=== PATIENT | male | born 1965 | race Native Hawaiian/Other Pacific Islander ===

== ENCOUNTER 2016-09-28 23:20 | Emergency (ER) | payer OTHER ==
[~2016-09-28] VITALS: Ht 190.5 cm; Wt 127.9 kg
[~2016-09-28 23:20] MED LIST: AMLO2.5T PO; ASPIRIN325 M1 OR; CYCL10TA35 PO; HYDRALAZINE10 MG PO; INSU100I2 SC; LISI20TA11 PO; LOVASTATIN20 MG PO; LYRICA75 MG PO; METF500T PO; SIMV10TA PO; TRAZ100T OR; TRAZ100T PO; WARF5TAB6 PO
[2016-09-29 00:15] LABS: PLATELET COUNT 221 K/uL (142-355)
[2016-09-29 00:23] LABS: POTASSIUM 3.9 mmol/L (3.6-5.2)
[2016-09-29 02:01] VITALS: BP 193/97; TEMP 98.5
== END 2016-09-29 02:06 | disposition home or self-care (01) ==
LOC: ED 23:20
PROVIDERS: Family Medicine
DX: R07.89 Other chest pain (principal); R60.9 Edema, unspecified; I16.0 Hypertensive urgency; J40 Bronchitis, not specified as acute or chronic; J18.9 Pneumonia, unspecified organism; N28.9 Disorder of kidney and ureter, unspecified
CPT/HCPCS: 36415; 80053; 81000; 82550; 83880; 84484; 85027; 93005; 99283

== ENCOUNTER 2016-11-15 11:32 | Emergency (ER) | payer OTHER ==
[~2016-11-15] VITALS: Ht 185.4 cm; Wt 128.4 kg
[2016-11-15 11:25] VITALS: BP 181/103; TEMP 98.3
[2016-11-15 12:22] LABS: PLATELET COUNT 237 K/uL (142-355)
[2016-11-15 12:24] LABS: POTASSIUM 4.3 mmol/L (3.6-5.2)
[2016-11-15 12:39] LABS: PARTIAL THROMBOPLASTIN TIME 19.6 SECONDS (24.5-33.6)
== END 2016-11-15 13:54 | disposition home or self-care (01) ==
LOC: ED 11:32
DX: E11.65 Type 2 diabetes mellitus with hyperglycemia (principal); I10 Essential (primary) hypertension; F28 Other psychotic disorder not due to a substance or known physiological condition
CPT/HCPCS: 80053; 83036; 85027; 85610; 85730; 93005; 99283

== ENCOUNTER 2017-06-03 12:29 | Outpatient (CLI) | payer OTHER | END 2017-06-03 12:30 | disposition short-term general hospital (02) | LOC: AMB 12:29 | DX: R42 Dizziness and giddiness (principal); R53.1 Weakness; R55 Syncope and collapse | CPT/HCPCS: A0425; A0427 ==

== ENCOUNTER 2017-06-03 12:30 | Observation (INO) | payer OTHER ==
[~2017-06-03] VITALS: Ht 190.5 cm; Wt 120.5 kg
[2017-06-03 12:32] VITALS: BP 132/83; TEMP 97.8
[2017-06-03 13:50] LABS: POTASSIUM 3.7 mmol/L (3.6-5.2); SODIUM 138 mmol/L (136-145)
[2017-06-03 13:55] LABS: PLATELET COUNT 208 K/uL (142-355)
[2017-06-03 15:30] VITALS: BP 140/81
[2017-06-03 17:00] VITALS: BP 116/84
[2017-06-03 18:17] VITALS: BP 123/70; TEMP 97.6; Ht 190.5 cm; Wt 120.5 kg
[2017-06-03 20:00] VITALS: BP 155/90; TEMP 97.9
[2017-06-03 23:36] VITALS: BP 179/96; TEMP 97.5
[2017-06-04 00:40] VITALS: BP 164/91; TEMP 97.5
[2017-06-04 04:00] VITALS: BP 164/91; TEMP 97.5
[2017-06-04 04:09] LABS: PLATELET COUNT 188 K/uL (142-355)
[2017-06-04 04:31] LABS: POTASSIUM 3.3 mmol/L (3.6-5.2)
== END 2017-06-04 14:50 | disposition home or self-care (01) ==
LOC: ED 12:30 → MED/SURG 16:20
PROVIDERS: ADMIT Emergency Medicine
DX: E86.0 Dehydration (principal); I12.9 Hypertensive chronic kidney disease with stage 1 through stage 4 chronic kidney disease, or unspecified chronic kidney disease; E11.22 Type 2 diabetes mellitus with diabetic chronic kidney disease; N18.4 Chronic kidney disease, stage 4 (severe); E87.6 Hypokalemia; F31.89 Other bipolar disorder; E78.4 Other hyperlipidemia; G40.802 Other epilepsy, not intractable, without status epilepticus
CPT/HCPCS: 36415; 80053; 80164; 80307; 81000; 82550; 82948; 84484; 85027; 85610; 85730; 93005; 96365; 96366; 96372; 96375; 99220; 99283; G0378; J1815; J3490

== ENCOUNTER 2017-07-17 13:18 | Emergency (ER) | payer OTHER ==
[~2017-07-17] VITALS: Ht 190.5 cm; Wt 114.3 kg
[2017-07-17 13:59] LABS: PLATELET COUNT 268 K/uL (142-355)
[2017-07-17 14:12] LABS: POTASSIUM 3.7 mmol/L (3.6-5.2); SODIUM 135 mmol/L (136-145)
[2017-07-17 14:31] LABS: PARTIAL THROMBOPLASTIN TIME 21.9 SECONDS (24.5-33.6)
[2017-07-17 22:14] VITALS: BP 135/78; TEMP 97.8
== END 2017-07-17 22:19 | disposition short-term general hospital (02) ==
LOC: ED 13:18
PROVIDERS: Emergency Medicine
DX: R41.82 Altered mental status, unspecified (principal); R55 Syncope and collapse; H53.8 Other visual disturbances; I63.9 Cerebral infarction, unspecified
CPT/HCPCS: 36415; 80053; 82550; 84484; 85027; 85610; 85730; 93005; 96360; 99285

== ENCOUNTER 2017-09-26 08:27 | Outpatient (CLI) | payer OTHER ==
[2017-09-26 08:56] LABS: PLATELET COUNT 255 K/uL (142-355)
[2017-09-26 10:20] LABS: POTASSIUM 3.8 mmol/L (3.6-5.2)
== END 2017-09-26 22:44 | disposition home or self-care (01) ==
LOC: LABW 08:27
PROVIDERS: Physician Assistant
DX: I10 Essential (primary) hypertension (principal); Z79.4 Long term (current) use of insulin; R35.1 Nocturia; E66.8 Other obesity
CPT/HCPCS: 36415; 80053; 80061; 83036; 83735; 84153; 84439; 84443; 85027